=== PATIENT | male | born 1960 | race Caucasian/White ===

== ENCOUNTER 2023-02-11 12:59 | Emergency (ER) | payer MEDICARE ==
[~2023-02-11] VITALS: Ht 160 cm; Wt 63.5 kg
[~2023-02-11 12:59] MED LIST: FOLI1; FURO20; IRON18 MG; PANT20; PROP10; SENN187; SPIR25; Vitamin B Comple1 EA
[2023-02-11 13:25] LABS: BASOPHILS ABSOLUTE AUTO 0.03 K/mm3 (0.00-0.23); BASOPHILS PERCENT AUTO 1 % (0-2); EOSINOPHILS ABSOLUTE AUTO 0.11 K/mm3 (0.00-0.68); EOSINOPHILS PERCENT AUTO 2 % (0-6); Hematocrit 33.5 % (37.0-53.0); Hemoglobin 11.1 g/dL (13.5-17.5); IMMATURE GRAN ABSOLUTE AUTO 0.01 K/mm3 (0.00-0.10); IMMATURE GRAN PERCENT AUTO 0 % (0-1); LYMPHOCYTES ABSOLUTE AUTO 0.25 K/mm3 (0.84-5.20); LYMPHOCYTES PERCENT AUTO 4 % (21-46); MONOCYTES ABSOLUTE AUTO 0.76 K/mm3 (0.16-1.47); MONOCYTES PERCENT AUTO 13 % (4-13); Mean Corpuscular HGB 20.8 pg (26.0-34.0); Mean Corpuscular HGB Conc 33.1 g/dL (31.5-36.5); Mean Corpuscular Volume 63 fL (80-100); NEUTROPHILS PERCENT AUTO 81 % (41-73); Platelet Count 137 K/mm3 (150-400); RDW Coefficient Variation 18.6 % (11.7-14.2); RDW Standard Deviation 37.6 fL (35.1-46.3); Red Blood Cell Count 5.34 M/mm3 (4.30-5.90); White Blood Cell Count 6.06 K/mm3 (4.00-11.30)
[2023-02-11 14:26] LABS: Albumin, Blood 2.8 g/dL (3.4-5.0); Albumin/Globulin Ratio 0.7 (0.8-1.8); Bilirubin, Total 1.3 mg/dL (0.1-1.0); Bun/Creatinine Ratio 26.1 (12.0-20.0); Calcium, Blood 8.3 mg/dL (8.5-10.1); Creatinine, Blood 0.58 mg/dL (0.60-1.20); Globulin, Blood 3.8 g/dL (2.2-4.0); Potassium, Blood 3.4 mmol/L (3.5-5.5); Total Protein, Blood 6.6 g/dL (6.4-8.2)
[2023-02-11 18:00] VITALS: BP 107/69
== END 2023-02-11 18:05 | disposition home or self-care (01) ==
LOC: ER 12:59
PROVIDERS: Emergency Medicine
DX: K74.60 Unspecified cirrhosis of liver (principal); R18.8 Other ascites; Z88.0 Allergy status to penicillin; Z79.899 Other long term (current) drug therapy
CPT/HCPCS: 49082; 80053; 85025; 96374; 99284-25; P9045

== ENCOUNTER 2023-03-10 18:28 | Emergency (ER) | payer MEDICARE ==
[~2023-03-10] VITALS: Ht 162.6 cm; Wt 63.5 kg
[2023-03-10 18:38] VITALS: BP 146/96
[2023-03-10] MEDS ORDERED: DOXY100 (18:42)
== END 2023-03-10 19:14 | disposition left against medical advice (07) ==
LOC: ER 18:28
DX: R10.9 Unspecified abdominal pain (principal); Z53.21 Procedure and treatment not carried out due to patient leaving prior to being seen by health care provider
CPT/HCPCS: 99281

== ENCOUNTER 2025-02-28 21:07 | Inpatient (IN) | payer MEDICARE ==
[~2025-02-28] VITALS: Ht 160 cm; Wt 55.9 kg
[~2025-02-28 21:07] MED LIST changes: +DOXY100; -FOLI1; +FOLI1 PO; -FURO20; +FURO20 PO; -SENN187; +SENN187 PO; -SPIR25; +SPIR25 PO; -Vitamin B Comple1 EA; +Vitamin B Comple1 EA PO
[2025-02-28 21:40] LABS: BASOPHILS ABSOLUTE AUTO 0.05 K/mm3 (0.00-0.23); BASOPHILS PERCENT AUTO 1 % (0-2); EOSINOPHILS ABSOLUTE AUTO 0.06 K/mm3 (0.00-0.68); EOSINOPHILS PERCENT AUTO 1 % (0-6); Hematocrit 24.9 % (37.0-53.0); Hemoglobin 8.4 g/dL (13.5-17.5); IMMATURE GRAN ABSOLUTE AUTO 0.02 K/mm3 (0.00-0.10); IMMATURE GRAN PERCENT AUTO 0 % (0-1); LYMPHOCYTES ABSOLUTE AUTO 0.25 K/mm3 (0.84-5.20); LYMPHOCYTES PERCENT AUTO 4 % (21-46); MONOCYTES ABSOLUTE AUTO 0.96 K/mm3 (0.16-1.47); MONOCYTES PERCENT AUTO 14 % (4-13); Mean Corpuscular HGB Conc 33.7 g/dL (31.5-36.5); Mean Corpuscular Volume 62 fL (80-100); NEUTROPHILS ABSOLUTE AUTO 5.51 K/mm3 (1.96-9.15); NEUTROPHILS PERCENT AUTO 81 % (41-73); NRBC ABSOLUTE 0.00 K/mm3 (0.00-0.02); NRBC Auto 0.0 /100 WBC (0.0-0.2); Platelet Count 107 K/mm3 (150-400); RDW Coefficient Variation 18.7 % (11.7-14.2); RDW Standard Deviation 39.9 fL (35.1-46.3)
[2025-02-28 22:00] LABS: Alanine Aminotransfer (ALT/SGP 37.0 U/L (12-78); Albumin, Blood 2.9 g/dL (3.4-5.0); Albumin/Globulin Ratio 0.9 (0.8-1.8); Anion Gap 13.0 mmol/L (3-11); Aspartate Aminotrans (AST/SGOT 63.0 U/L (12-37); Bilirubin, Total 1.4 mg/dL (0.1-1.0); Blood Urea Nitrogen 62.0 mg/dL (8-24); CO2, Blood 18.0 mmol/L (21-32); Calcium, Blood 8.5 mg/dL (8.5-10.1); Chloride, Blood 104.0 mmol/L (98-108); Creatinine, Blood 2.63 mg/dL (0.60-1.20); Globulin, Blood 3.4 g/dL (2.2-4.0); Glucose, Blood 153.0 mg/dL (70-99); Potassium, Blood 5.3 mmol/L (3.5-5.5); Sodium, Blood 130.0 mmol/L (136-145); Total Protein, Blood 6.3 g/dL (6.4-8.2)
[2025-02-28 22:05] LABS: pH Blood Venous 7.33 (7.34-7.37)
[2025-02-28 22:58] LABS: Source, Urine Clean Catch
[2025-02-28 23:36] LABS: Bilirubin, Urine Neg (Neg); Color, Urine Yellow (P-Yellow); Glucose Qualitative, Urine Neg (Neg); Ketones, Urine Neg (Neg); Leukocyte Esterase, Urine 1+ (Neg); Protein, Urine 2+ (Neg); Specific Gravity, Urine 1.025 (1.003-1.022); Urobilinogen, Urine NORM (Normal)
[2025-02-28 23:37] LABS: Red Blood Cells, Urine 0-2 /hpf (0-2); White Blood Cells, Urine 0-2 /hpf (0-5)
[2025-02-28] MEDS ORDERED: NS 1,000 ML IV SCH (23:45)
[2025-02-28 23:51] LABS: CORONAVIRUS COVID-19 AG Negative (NEGATIVE)
[2025-02-28] MEDS ORDERED: Darbepoetin (Pharmacy Consult) SC SCH (23:55)
[2025-03-01] MEDS ORDERED: Sodium Bicarb 8.4% Inj 150 MEQ in Dextrose 5% 1,000 ML IV SCH ×2 (00:35→04:40)
[2025-03-01] MEDS ORDERED: FLU VACC TS2025(65UP)/MF59C/PF 45 MCG/0.5 ML SYRINGE IM SCH (02:55)
--- NOTE | 2025-03-01 03:00 | NUR ---
Settled patient to room Temporary assumption of care while breaking Primary RN Chano. Patient arrived to unit via gurney w/ SO at bedside and bicarb infusing. AO, converses and answers questions appropriately. SBA transfer to bed. 2-RN skin check completed w/ Chano. Pre-existing 1cm x 1cm skin tear to R elbow from "fall at home" per . Second 1 cm skin tear to LFA upon arrival to unit from accidentally bumping the IV pump. Both cleansed. Skin prepped; steri strips, and antibacterial ointment applied to both wounds so as to maintain skin integrity and promote wound healing by primary intention. R elbow wound w/non-adherent drsg and wrapped w/kerlex to protect from further injury. Bed in lowest position. Call light in reach, oriented to call system. Returned care to Chano.
[2025-03-01 03:07] VITALS: BP 107/70
[2025-03-01 03:17] LABS: Hematocrit 21.9 % (37.0-53.0); Hemoglobin 7.4 g/dL (13.5-17.5)
[2025-03-01] MEDS ORDERED: Darbepoetin Alfa in Polysorbat 25 MCG/0.42 ML Syringe SC SCH (03:22)
[2025-03-01] MEDS ORDERED: Darbepoetin Alfa in Polysorbat 25 MCG/0.42 ML Syringe SC ONE (03:35)
[2025-03-01 03:38] LABS: Prothrombin Time Results 12.8 Sec (9.7-11.5)
[2025-03-01 03:39] LABS: Albumin, Blood 2.8 g/dL (3.4-5.0); Anion Gap 11 mmol/L (3-11); Blood Urea Nitrogen 60 mg/dL (8-24); CO2, Blood 21 mmol/L (21-32); Calcium, Blood 8.6 mg/dL (8.5-10.1); Chloride, Blood 104 mmol/L (98-108); Creatinine, Blood 2.59 mg/dL (0.60-1.20); Glucose, Blood 86 mg/dL (70-99); Magnesium, Blood 2.4 mg/dL (1.6-2.4); Phosphorus, Blood 5.2 mg/dL (2.5-4.9); Potassium, Blood 5.0 mmol/L (3.5-5.5); Sodium, Blood 131 mmol/L (136-145)
[2025-03-01 04:54] LABS: Albumin/Globulin Ratio 1.0 (0.8-1.8); Aspartate Aminotrans (AST/SGOT 54 U/L (12-37); Bilirubin, Total 1.1 mg/dL (0.1-1.0); Globulin, Blood 2.8 g/dL (2.2-4.0); Total Protein, Blood 5.6 g/dL (6.4-8.2)
[2025-03-01 05:03] LABS: Alanine Aminotransfer (ALT/SGP 34 U/L (12-78); Bilirubin, Direct 0.5 mg/dL (0.0-0.3); Bilirubin, Indirect 0.6 mg/dL (0.1-0.7)
[2025-03-01] MEDS ORDERED: NS 1,000 ML IV SCH (07:20)
--- NOTE | 2025-03-01 07:26 | NUR ---
ADMIT NOTE/TOP LIFTER SUMMARY PT ADMIT FROM ED THIS SHIFT FOR RAHEL ON CKD. ORIENTED TO ROOM AND CALL LIGHT BY BREAK RN SHAN. SEE SHAN'S NOTE FOR MORE DETAILS. BASIC WOUND CARE ORDERS PLACED FOR SKIN TEARS ON R EBLOW AND LFA PER PROTOCOL. PT STATES HE GETS PARACENTESIS PROCEDURES EVERY WEEK WITH ONE SCHEDULED FOR . REPORT GIVEN TO DAY RN. OXYCODONE ADMIN X 1 W/ GOOD EFFECT. BED RAILS UP X 2, BED IN LOWEST POSITION, BED WHEELS LOCKED, PERSONAL BELONGINGS AND CALL LIGHT WITHIN REACH FOR SAFETY.
[2025-03-01 08:29] VITALS: BP 107/72
[2025-03-01] MEDS ORDERED: Heparin Sodium,Porcine 5,000 UNIT/0.5 ML SDV SC SCH (09:00)
[2025-03-01 12:48] VITALS: BP 109/67
[2025-03-01] MEDS ORDERED: ASCO500 PO (12:51)
[2025-03-01] MEDS ORDERED: IRON EC324 MG PO (12:53)
[2025-03-01] MEDS ORDERED: PANT20 PO (12:54)
[2025-03-01] MEDS ORDERED: CITALOPRAM HBR20 M6 PO (12:56)
[2025-03-01] MEDS ORDERED: CEPH500 PO (12:59)
[2025-03-01] MEDS ORDERED: MULTI-VITAMIN1 EAC2 PO (13:05)
[2025-03-01] MEDS ORDERED: OXAYDO5 M1 PO (13:06)
--- NOTE | 2025-03-01 13:58 | NUR ---
RN LEFT VOICEMAIL REQUESTING CALLBACK FROM PROVIDER - RN CALLED TO INFORM PROVIDER PT MED REC WAS COMPLETED/UPDATED AND PT PAIN UNCONTROLLED WITH CURRENT REGIMEN. PT RESTING IN NO DISTRESS, CALL LIGHT IN REACH. AWAITING CALLBACK.
[2025-03-01 16:11] VITALS: BP 107/74
--- NOTE | 2025-03-01 17:14 | NUR ---
SHIFT SUMMARY NO ACUTE CHANGES, A/Ox4, ABLE TO MAKE NEEDS KNOWN. USES CALL LIGHT APPROPRIATELY. STRICT I&O'S. MED REC COMPLETED WITH ASSISTANCE FROM PT PARTNER. PROVIDER INFORMED MED REC UPDATED - PROPANOLOL DC'D, PAIN MEDICATION CHANGED TO ROXICODONE 5 MG PO Q4H PRN. PT MEDICATED PER EMAR FROM PAIN. VITALS STABLE. FAIR ORAL INTAKE, ENCOURAGING FLUID IN TAKE. ON NS @ 50 ML/HR RUNNING R AC PIV. DRESSING TO R ELBOW REMAINS C/D/I. PT CURRENTLY RESTING IN BED WITH BED IN LOWEST POSITION AND CALL LIGHT IN REACH. UP TO BR c PARTNER. EDUCATED PT AND PARTNER RE SAFE TRASNFERS AND FALL PREVENTION. PT APPEARS COMFORTABLE AND IN NO DISTRESS.
[2025-03-01 17:43] VITALS: BP 112/69
[2025-03-01 19:24] VITALS: BP 116/72
--- NOTE | 2025-03-02 03:42 | NUR ---
CIRCULAR SAWYER HELPER SUMMARY VSS. AT BEDSIDE FOR SUPPORT. COOPERATIVE WITH CARE. AFFECT CHEERFUL, JOKES WITH STAFF. IVF OF NS INFUSING AT 50 ML/HR. TOLERATES MEDS WELL. HOB ELEVATED FOR RESP COMFORT. UP TO BATHROOM WITH ASSIST. HAS BEEN RESTING QUIETLY WITH FEW INTERRUPTIONS. CALL LIGHT IN REACH, RAILS UP X 2 AND BED IN LOW POSITION FOR SAFETY. ABD REMAINS SOMEWHAT SWOLLEN. DRESSING OF RIGHT ELBOW INTACT. PAIN MEDS ADMIN PER MD ORDERS - SEE MAR FOR DETAILS. WILL CONT TO MONITOR.
[2025-03-02 04:11] VITALS: BP 110/67
[2025-03-02 05:48] LABS: BASOPHILS ABSOLUTE AUTO 0.06 K/mm3 (0.00-0.23); BASOPHILS PERCENT AUTO 2 % (0-2); EOSINOPHILS ABSOLUTE AUTO 0.09 K/mm3 (0.00-0.68); EOSINOPHILS PERCENT AUTO 3 % (0-6); Hematocrit 24.0 % (37.0-53.0); Hemoglobin 7.8 g/dL (13.5-17.5); IMMATURE GRAN ABSOLUTE AUTO 0.01 K/mm3 (0.00-0.10); IMMATURE GRAN PERCENT AUTO 0 % (0-1); LYMPHOCYTES ABSOLUTE AUTO 0.20 K/mm3 (0.84-5.20); LYMPHOCYTES PERCENT AUTO 6 % (21-46); MONOCYTES ABSOLUTE AUTO 0.72 K/mm3 (0.16-1.47); MONOCYTES PERCENT AUTO 22 % (4-13); Mean Corpuscular HGB Conc 32.5 g/dL (31.5-36.5); Mean Corpuscular Volume 62 fL (80-100); NEUTROPHILS ABSOLUTE AUTO 2.27 K/mm3 (1.96-9.15); NEUTROPHILS PERCENT AUTO 68 % (41-73); NRBC ABSOLUTE 0.00 K/mm3 (0.00-0.02); NRBC Auto 0.0 /100 WBC (0.0-0.2); Platelet Count 78 K/mm3 (150-400); RDW Coefficient Variation 19.0 % (11.7-14.2); RDW Standard Deviation 40.0 fL (35.1-46.3)
[2025-03-02 06:08] LABS: Alanine Aminotransfer (ALT/SGP 32.0 U/L (12-78); Albumin, Blood 2.5 g/dL (3.4-5.0); Albumin/Globulin Ratio 0.8 (0.8-1.8); Anion Gap 9.0 mmol/L (3-11); Aspartate Aminotrans (AST/SGOT 50.0 U/L (12-37); Bilirubin, Direct 0.5 mg/dL (0.0-0.3); Bilirubin, Indirect 0.7 mg/dL (0.1-0.7); Bilirubin, Total 1.2 mg/dL (0.1-1.0); Blood Urea Nitrogen 58.0 mg/dL (8-24); CO2, Blood 25.0 mmol/L (21-32); Calcium, Blood 8.2 mg/dL (8.5-10.1); Chloride, Blood 104.0 mmol/L (98-108); Creatinine, Blood 2.28 mg/dL (0.60-1.20); Globulin, Blood 3.2 g/dL (2.2-4.0); Glucose, Blood 95.0 mg/dL (70-99); Magnesium, Blood 2.2 mg/dL (1.6-2.4); Phosphorus, Blood 4.6 mg/dL (2.5-4.9); Potassium, Blood 4.1 mmol/L (3.5-5.5); Sodium, Blood 134.0 mmol/L (136-145); Total Protein, Blood 5.7 g/dL (6.4-8.2)
[2025-03-02 07:18] VITALS: BP 110/67
[2025-03-02 12:46] VITALS: BP 104/69
[2025-03-02 15:52] VITALS: BP 102/66
--- NOTE | 2025-03-02 16:13 | NUR ---
PT IS A/OX4. PLEASANT AND COOPERATIVE WITH CARE. PT HAS BEEN SLEEPING MOST OF SHIFT, CHEST RISE AND FALL SYMMETRICAL. HAS REMAINED AT THE BEDSIDE. PTS PAIN HAS BEEN TREATED PER EMAR. BED IS LOCKED AND IN THE LOWEST POSITION. CALL LIGHT IN REACH. NO ACUTE NEEDS AT THIS TIME.
[2025-03-02 19:22] VITALS: BP 111/69
[2025-03-03 04:09] VITALS: BP 102/69
--- NOTE | 2025-03-03 05:17 | NUR ---
PT HAS SLEPT AT TIMES T/O THE SHIFT C/0 CHRONIC BACK PAIN, MEDICATION GIVEN RX. PT REP[ORTS AFTER PAIN MEDICATION PAIN LEVEL HAS DECREASED TO A TOLERABLE LEVEL.
[2025-03-03 05:44] LABS: BASOPHILS ABSOLUTE AUTO 0.03 K/mm3 (0.00-0.23); BASOPHILS PERCENT AUTO 1 % (0-2); EOSINOPHILS ABSOLUTE AUTO 0.07 K/mm3 (0.00-0.68); EOSINOPHILS PERCENT AUTO 2 % (0-6); Hematocrit 23.5 % (37.0-53.0); Hemoglobin 7.9 g/dL (13.5-17.5); IMMATURE GRAN ABSOLUTE AUTO 0.01 K/mm3 (0.00-0.10); IMMATURE GRAN PERCENT AUTO 0 % (0-1); LYMPHOCYTES ABSOLUTE AUTO 0.15 K/mm3 (0.84-5.20); LYMPHOCYTES PERCENT AUTO 5 % (21-46); MONOCYTES ABSOLUTE AUTO 0.63 K/mm3 (0.16-1.47); MONOCYTES PERCENT AUTO 20 % (4-13); Mean Corpuscular HGB Conc 33.6 g/dL (31.5-36.5); Mean Corpuscular Volume 62 fL (80-100); NEUTROPHILS ABSOLUTE AUTO 2.26 K/mm3 (1.96-9.15); NEUTROPHILS PERCENT AUTO 72 % (41-73); NRBC ABSOLUTE 0.00 K/mm3 (0.00-0.02); NRBC Auto 0.0 /100 WBC (0.0-0.2); Platelet Count 66 K/mm3 (150-400); RDW Coefficient Variation 18.4 % (11.7-14.2); RDW Standard Deviation 39.4 fL (35.1-46.3)
[2025-03-03 06:03] LABS: Alanine Aminotransfer (ALT/SGP 27.0 U/L (12-78); Albumin, Blood 2.6 g/dL (3.4-5.0); Albumin/Globulin Ratio 0.9 (0.8-1.8); Anion Gap 11.0 mmol/L (3-11); Aspartate Aminotrans (AST/SGOT 38.0 U/L (12-37); Bilirubin, Direct 0.4 mg/dL (0.0-0.3); Bilirubin, Indirect 0.7 mg/dL (0.1-0.7); Bilirubin, Total 1.1 mg/dL (0.1-1.0); Blood Urea Nitrogen 57.0 mg/dL (8-24); CO2, Blood 22.0 mmol/L (21-32); Calcium, Blood 8.1 mg/dL (8.5-10.1); Chloride, Blood 104.0 mmol/L (98-108); Creatinine, Blood 2.23 mg/dL (0.60-1.20); Globulin, Blood 2.9 g/dL (2.2-4.0); Glucose, Blood 109.0 mg/dL (70-99); Magnesium, Blood 2.3 mg/dL (1.6-2.4); Phosphorus, Blood 4.3 mg/dL (2.5-4.9); Potassium, Blood 3.9 mmol/L (3.5-5.5); Sodium, Blood 133.0 mmol/L (136-145); Total Protein, Blood 5.5 g/dL (6.4-8.2)
[2025-03-03 07:30] VITALS: BP 99/68
[2025-03-03 13:20] VITALS: BP 110/80
[2025-03-03 15:49] VITALS: BP 109/68
--- NOTE | 2025-03-03 17:20 | NUR ---
PT IS A/OX4. PLEASANT AND COOPERATIVE WITH CARE. INDEPENDENT IN ROOM. HAS BEEN AT THE BED SIDE T/O SHIFT. PT HAS MODERATE ASCITES WHICH HE GETS WEEKLY PARACENTESES FOR. CURRENT PLAN IS FOR A PARACENTESIS TOMORROW. PAIN HAS BEEN TREATED PER EMAR. PT IS CURRENTLY IN BED VISITING WITH AT THE BEDSIDE. NO ACUTE NEEDS AT THIS TIME.
[2025-03-03 17:38] VITALS: BP 104/78
[2025-03-03 19:13] VITALS: BP 124/85
[2025-03-03] MEDS ORDERED: NS 250 ML IV PRN (20:30)
[2025-03-04 03:46] VITALS: BP 110/88
[2025-03-04 05:56] LABS: BASOPHILS ABSOLUTE AUTO 0.03 K/mm3 (0.00-0.23); BASOPHILS PERCENT AUTO 1 % (0-2); EOSINOPHILS ABSOLUTE AUTO 0.16 K/mm3 (0.00-0.68); EOSINOPHILS PERCENT AUTO 5 % (0-6); Hematocrit 23.3 % (37.0-53.0); Hemoglobin 7.7 g/dL (13.5-17.5); IMMATURE GRAN ABSOLUTE AUTO 0.01 K/mm3 (0.00-0.10); IMMATURE GRAN PERCENT AUTO 0 % (0-1); LYMPHOCYTES ABSOLUTE AUTO 0.18 K/mm3 (0.84-5.20); LYMPHOCYTES PERCENT AUTO 5 % (21-46); MONOCYTES ABSOLUTE AUTO 0.68 K/mm3 (0.16-1.47); MONOCYTES PERCENT AUTO 20 % (4-13); Mean Corpuscular HGB Conc 33.0 g/dL (31.5-36.5); Mean Corpuscular Volume 63 fL (80-100); NEUTROPHILS ABSOLUTE AUTO 2.33 K/mm3 (1.96-9.15); NEUTROPHILS PERCENT AUTO 69 % (41-73); NRBC ABSOLUTE 0.00 K/mm3 (0.00-0.02); NRBC Auto 0.0 /100 WBC (0.0-0.2); Platelet Count 68 K/mm3 (150-400); RDW Coefficient Variation 18.4 % (11.7-14.2); RDW Standard Deviation 40.7 fL (35.1-46.3)
[2025-03-04 06:06] LABS: Albumin, Blood 2.6 g/dL (3.4-5.0); Anion Gap 11 mmol/L (3-11); Blood Urea Nitrogen 57 mg/dL (8-24); CO2, Blood 23 mmol/L (21-32); Calcium, Blood 8.3 mg/dL (8.5-10.1); Chloride, Blood 104 mmol/L (98-108); Creatinine, Blood 1.99 mg/dL (0.60-1.20); Glucose, Blood 108 mg/dL (70-99); Magnesium, Blood 2.3 mg/dL (1.6-2.4); Phosphorus, Blood 4.0 mg/dL (2.5-4.9); Potassium, Blood 4.2 mmol/L (3.5-5.5); Sodium, Blood 134 mmol/L (136-145)
--- NOTE | 2025-03-04 06:09 | NUR ---
SHIFT SUMMARY: PT IS AOX3 AND RECEPTIVE TO CARE. HE AMBULATES WITH SBA TO BR. GAIT IS STEADY. PT REQUESTED HIS AVAILABLE PAIN RELIEF MEDS Q4 HRS, C / O BACK PAIN 10/13. TREATED PER EMAR. DR. PALACIO STOPPED IN THIS AM TO UPDATE PT ON POSSIBLE DC WITH INSTRUCTIONS TO F/U ON 03/12. THIS RN ADDED THE F/U INFO INTO THE DC PLAN. NO ACUTE EVENTS THIS SHIFT. PT IS SLEEPING, AT BEDSIDE. PERSONAL BELONGINGS, BEDSIDE TABLE, AND CALL LIGHT WITHIN REACH. BED WHEELS LOCKED AND BED IN LOWEST POSITION.
[2025-03-04 07:39] VITALS: BP 98/70
[2025-03-04] MEDS ORDERED: Albumin (Human) 25gm/100ml 100 ML IV ONE (10:50)
[2025-03-04 13:15] VITALS: BP 95/63
[2025-03-04] MEDS ORDERED: MIDO5 PO (13:51)
[2025-03-04] MEDS ORDERED: SODBIC650 PO (13:53)
[2025-03-04] MEDS ORDERED: TAMS.4ER PO (13:53)
--- NOTE | 2025-03-04 14:54 | NUR ---
DISCHARGE PT DISCHARGED HOME WITH . EDUCATION PROVIDED, ALL QUESTIONS ANSWERED, ALL BELONGINGS WITH PT.
== END 2025-03-04 14:15 | disposition home or self-care (01) | DRG 683 ==
LOC: ER 21:07 → MEDS 03-01 01:57 → ENPENDDIS 03-04 12:53 → MEDS 03-04 14:15
PROVIDERS: Emergency Medicine; Family Medicine; Internal Medicine Nephrology; ADMIT Student in an Organized Health Care Education/Training Program
PROC: 0W9G3ZZ Drainage of Peritoneal Cavity, Percutaneous Approach (ICD-10-PCS; principal; 2025-03-04)
PROC: 30233J1 Transfusion of Nonautologous Serum Albumin into Peripheral Vein, Percutaneous Approach (ICD-10-PCS; 2025-03-04)
DX: N17.9 Acute kidney failure, unspecified (principal); C22.0 Liver cell carcinoma; E87.1 Hypo-osmolality and hyponatremia; R18.8 Other ascites; E87.20 Acidosis, unspecified; R64 Cachexia; M48.56XA Collapsed vertebra, not elsewhere classified, lumbar region, initial encounter for fracture; D61.818 Other pancytopenia; D63.0 Anemia in neoplastic disease; R74.01 Elevation of levels of liver transaminase levels; K74.60 Unspecified cirrhosis of liver; B18.2 Chronic viral hepatitis C; E87.5 Hyperkalemia; N18.9 Chronic kidney disease, unspecified; D63.1 Anemia in chronic kidney disease; K80.20 Calculus of gallbladder without cholecystitis without obstruction; R39.11 Hesitancy of micturition; N40.1 Benign prostatic hyperplasia with lower urinary tract symptoms; Z79.899 Other long term (current) drug therapy; Z88.0 Allergy status to penicillin
CPT/HCPCS: 36415; 49083; 71045; 74176; 80053; 80069; 81001; 82140; 82248; 82550; 82803; 83735; 84100; 84484; 85014; 85018; 85025; 85610; 87428-QW; 93005; 93010; 96365; 96368; 99285-25; A9270; J0881; J1644; J2354; J7030; J7050; J7070; P9047